=== PATIENT | female | born 1980 | race Caucasian/White ===

== ENCOUNTER 2019-02-02 20:11 | Inpatient (IN) | payer OTHER ==
[~2019-02-02] VITALS: Ht 162.6 cm; Wt 61.2 kg
[2019-02-02 20:20] VITALS: BP 167/109
--- NOTE | 2019-02-02 20:55 | NUR ---
Dr. Paz examining patient.
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
[2019-02-02] MEDS ORDERED: LORazepam 2 MG/ML VIAL IVP ONE (21:05)
[2019-02-02] MEDS ORDERED: ONDANSETRON 4 MG/2 ML VIAL IVP ONE (21:05)
[2019-02-02] MEDS ORDERED: NACL 0.9% 1,000 ML IV ONE (21:05)
[2019-02-02 21:18] LABS: APPEARANCE,URINE HAZY (CLEAR); BILIRUBIN,URINE NEGATIVE (NEGATIVE); BLOOD, URINE TRACE-I (NEGATIVE); COLOR,URINE YELLOW (YELLOW); LEUKOCYTE ESTERASE ,URINE 1+ (NEGATIVE); NITRITE, URINE NEGATIVE (NEGATIVE); PH,URINE 6.5 (5.0-9.0); UGLUCOSE NEGATIVE (NEGATIVE)
[2019-02-02 21:19] LABS: BASOPHILS % (AUTO) 0.2 % (0.0-2.0); HEMATOCRIT 38.1 % (36-48); LYMPHOCYTES # (AUTO) 0.4 K/uL (2.5-16.5); LYMPHOCYTES % (AUTO) 7.6 % (20.5-51.1); MEAN CORPUSCULAR HEMOGLOBIN 32 pg (27-31); MEAN CORPUSCULAR HGB CONC 34 g/dL (33-37); MEAN CORPUSCULAR VOLUME 95.2 fL (80-94); MONOCYTES # (AUTO) 0.7 K/uL (0.8-1.0); MONOCYTES % (AUTO) 13.1 % (1.7-9.3); NEUTROPHILS # (AUTO) 4.1 K/uL (1.8-7.7); NEUTROPHILS % (AUTO) 79.1 % (42.2-75.2); PLATELET COUNT (AUTO) 97 K/uL (140-450); RED BLOOD CELL COUNT(AUTO) 4.01 MIL/uL (4.20-5.40); RED CELL DISTRIBUTION WIDTH 13.9 % (11.6-13.7); WHITE BLOOD COUNT (AUTO) 5.2 K/uL (4.8-10.8)
[2019-02-02 21:22] LABS: RBC,URINE 0-5 /HPF (0-5); WBC,URINE 16-25 (MOD) /HPF (0-5)
[2019-02-02 21:27] LABS: ANION GAP 14.2 (8-16); CARBON DIOXIDE 24.3 mmol/L (21-32); CREATININE 0.6 mg/dL (0.6-1.3); POTASSIUM 3.5 mmol/L (3.5-5.1)
--- NOTE | 2019-02-02 21:30 | NUR ---
EKG PERFORMED AT BEDSIDE
[2019-02-02 21:32] LABS: BARBITURATE, URINE NEG. ng/ml (NEG <=200); BENZODIAZEPINE, URINE POS. ng/mL (NEG <=200); CANNABINOID, URINE NEG. ng/mL (NEG <=50); COCAINE, URINE NEG. ng/mL (NEG <=300); OPIATE, URINE NEG. ng/mL (NEG <=2000); PHENCYCLIDINE SCREEN,URINE NEG. ng/mL (NEG <=25)
[2019-02-02 21:33] LABS: ALBUMIN 3.9 g/dL (3.4-5.0); TOTAL BILIRUBIN 0.6 mg/dL (0.0-1.0)
[2019-02-02] MEDS ORDERED: cefTRIAXone 1,000 MG in LIDOCAINE MPF 1% - 5 mL VIAL 2.1 ML IM ONE (21:45)
--- NOTE | 2019-02-02 22:15 | NUR ---
PT C/O LEFT EAR AND RT ANKLE PAIN. MD AT BEDSIDE. ORDERS TO FOLLOW.
[2019-02-02] MEDS ORDERED: GABA300C PO (22:20)
[2019-02-02] MEDS ORDERED: SERT100T PO (22:20)
[2019-02-02] MEDS ORDERED: SERT25TA PO (22:20)
[2019-02-02] MEDS ORDERED: NALT50TA5 PO (22:20)
[2019-02-02] MEDS ORDERED: KETOROLAC 30 MG/ML VIAL IVP ONE (22:40)
[2019-02-02] MEDS ORDERED: guaiFENesin DM 200/20 MG-10 ML 10 ML UDC PO PRN (22:45)
[2019-02-02] MEDS ORDERED: POTASSIUM CHLORIDE 10 MEQ TABER PO PRN (22:45)
[2019-02-02] MEDS ORDERED: ACETAMINOPHEN 325 MG TAB PO PRN (22:45)
[2019-02-02] MEDS ORDERED: DOCUSATE SODIUM 250 MG GELCAP PO PRN (22:45)
[2019-02-02] MEDS ORDERED: ALUMINUM HYD/MAG/SIMETHICONE 30 ML UDC PO PRN (22:45)
[2019-02-02] MEDS ORDERED: ALBUTEROL 0.083% 2.5 MG/3 ML NEBU INH PRN (22:45)
[2019-02-02] MEDS ORDERED: MAG SULF 2000 MG/WATER PREMIX 50 ML IV PRN (22:45)
[2019-02-02] MEDS ORDERED: POTASSIUM CHLORIDE 40 MEQ, LIDOCAINE 1% 25 MG in NACL 0.9% 250 ML IV PRN (22:45)
[2019-02-02] MEDS ORDERED: ZOLPIDEM 5 MG TAB PO PRN (22:45)
[2019-02-02] MEDS ORDERED: IPRATROPIUM 0.02% 0.5 MG/2.5 ML NEBU INH PRN (22:45)
[2019-02-02] MEDS ORDERED: diphenhydrAMINE 50 MG/ML VIAL IVP PRN (22:45)
[2019-02-02] MEDS ORDERED: ONDANSETRON 4 MG/2 ML VIAL IVP PRN (22:45)
[2019-02-02] MEDS ORDERED: MAGNESIUM OXIDE 400 MG TAB PO PRN (22:45)
--- NOTE | 2019-02-02 23:00 | NUR ---
MD INFORMED PT OF PLAN TO ADMIT. NO NEW QUESTIONS OR CONCERNS AT THIS TIME.
--- NOTE | 2019-02-02 23:30 | NUR ---
Patient will be admitted to care of DR SCOTT. Admited to TELE. Will go to room 106-B. Belongings list completed. Report to JARVIS ISIDRO.
--- NOTE | 2019-02-02 23:30 | NUR ---
PT ARRIVED AT UNIT VIA GURNEY, PT AMBULATED TO BED, TOLERATED WELL, RECEIVED BEDSIDE REPORT FROM ER NURSE MOSES RN, PT STABLE, IV TO L AC 20G PATENT, INTACT, SL, PT ON ROOM AIR, NO SOB, ORIENT PT TO ROOM, CALL LIGHT, BED, MRSA SWAB TAKEN, V/S TAKEN, WNL, INITIAL ASSESSMENT DONE, ALL SAFETY PRECAUTION MET, CALL LIGHT WITHIN REACH, WILL CONTINUE TO MONITOR.
[2019-02-02 23:40] VITALS: BP 138/90
--- NOTE | 2019-02-02 23:55 | NUR ---
DR. SCOTT AT BEDSIDE EVALUATING PT, STATED TO GIVE PT ATIVAN AND LIBRIUM NOW. WILL CONTINUE WITH ORDERS.
[2019-02-03] MEDS: LORazepam 2 MG/ML VIAL IVP PRN ×4 (00:07→20:36)
--- NOTE | 2019-02-03 00:15 | NUR ---
MEDICATION PER DR ORDER ADMINISTERED, PT TOLERATED WELL, NO DISTRESS NOTED, CALL LIGHT WITHIN REACH, WILL CONTINUE TO MONITOR.
--- NOTE | 2019-02-03 02:18 | NUR ---
CHECKED ON PT, PT SLEEPING, NO DISTRESS NOTED, CALL LIGHT WITHIN REACH, WILL CONTINUE TO MONITOR.
[2019-02-03 04:00] VITALS: BP 128/88
--- NOTE | 2019-02-03 04:10 | NUR ---
CHECKED ON PT, PT SLEEPING, NO DISTRESS NOTED, V/S TAKEN WNL, CALL LIGHT WITHIN REACH, WILL CONTINUE TO MONITOR.
--- NOTE | 2019-02-03 07:20 | NUR ---
ENDORSED PT TO DAY SHIFT NURSE ALYSSA CONLEY, PT STABLE, NO DISTRESS NOTED, CALL LIGHT WITHIN REACH.
--- NOTE | 2019-02-03 07:21 | NUR ---
RECEIVED REPORT FROM RE EXAMINER NURSE SANNA. PT IN STABLE CONDITION. RESPIRATIONS EVEN AND UNLABORED. ROOM AIR. IV INTACT AND PATENT. SAFETY MEASURES IN PLACE. BED IN LOW POSITION. BED ALARM ON. CALL LIGHT AT BEDSIDE. WILL CONTINUE TO MONITOR.
[2019-02-03 08:00] VITALS: BP 130/97
--- NOTE | 2019-02-03 08:45 | NUR ---
JONATHAN [facility] [place] [address] [id number] PRN [id number].
--- NOTE | 2019-02-03 09:16 | NUR ---
PATIENT HAS BEEN SCREENED AND CATEGORIZED LOW NUTRITION RISK. PATIENT WILL BE SEEN WITHIN 7 DAYS OF ADMISSION. 02/09/[address]
[2019-02-03] MEDS: THIAMINE 100 MG TAB PO SCH (09:19)
[2019-02-03] MEDS: FOLIC ACID 1 MG TAB PO SCH (09:20)
[2019-02-03] MEDS: MULTIVITAMIN 1 TAB PO SCH (09:20)
--- NOTE | 2019-02-03 09:20 | NUR ---
GAVE ORDERED DUE MEDICATIONS. PT TOLERATED WELL. WILL CONTINUE TO MONITOR.
[2019-02-03] MEDS: HYDROcodone/APAP 5/325 MG 1 TAB TAB PO PRN ×2 (09:21→17:31)
[2019-02-03 12:00] VITALS: BP 163/98
--- NOTE | 2019-02-03 12:19 | NUR ---
Patient was provided an appointment with PCP, Dr. Adriana Goddard on 02/09/2019 at 1:30PM. Patient will be seen at [address] [place] [address]. Phone number: [phone]. SW/CM will follow up as needed.
[2019-02-03] MEDS: cloNIDine 0.1 MG TAB PO PRN (12:34)
--- NOTE | 2019-02-03 12:35 | NUR ---
GAVE CLONIDINE B/P 163/98 WILL CONTINUE TO MONITOR.
[2019-02-03] MEDS ORDERED: LIB5 PO (13:30)
[2019-02-03] MEDS ORDERED: LORA-476 PO (13:32)
[2019-02-03] MEDS ORDERED: VITA1TAB44 PO (13:33)
[2019-02-03] MEDS ORDERED: VITB1I PO (13:34)
[2019-02-03] MEDS ORDERED: MULT-153 PO (13:35)
[2019-02-03] MEDS ORDERED: THIA500T9 PO (13:42)
--- NOTE | 2019-02-03 14:03 | NUR ---
RECHECKED B/P 153/103. PT IN STABLE CONDITION.
--- NOTE | 2019-02-03 15:42 | NUR ---
PT REFUSED TO BE DISCHARGED STATING "I AM NOT STABLE ENOUGH". DR. SCOTT IS AWARE AND WILL SEE THE PT. PT IN STABLE CONDITION. FAMILY MEMBER AND FRIEND AT BEDSIDE. BED IN LOW POSITION. CALL LIGHT AT BEDSIDE. WILL CONTINUE TO MONITOR.
[2019-02-03 16:00] VITALS: BP 145/101
--- NOTE | 2019-02-03 17:00 | NUR ---
PT SLEEPING AT THIS TIME. RESPIRATIONS EVEN AND UNLABORED. CALL LIGHT AT BEDSIDE. BED ALARM ON. BED IN LOW POSITION. WILL CONTINUE TO MONITOR.
--- NOTE | 2019-02-03 19:27 | NUR ---
GAVE REPORT TO AUDIO VISUAL EQUIPMENT RENTAL CLERK NURSE JOSH FOR CONTINUITY OF CARE. PT IN STABLE CONDITION.
--- NOTE | 2019-02-03 19:28 | NUR ---
RECEIVED BEDSIDE REPORT FROM DAY SHIFT NURSEALYSSA. PT IN STABLE CONDITION. RESPIRATIONS EVEN AND UNLABORED. ROOM AIR. IV SITE ON LAC, 20G, INTACT AND PATENT. POC REVIEWED AND DISCUSSED WITH PT. PT VERBALIZED UNDERSTANDING. BOARD UPDATED. SAFETY MEASURES IN PLACE. BED IN LOW POSITION. CALL LIGHT AT BEDSIDE. WILL CONTINUE TO MONITOR.
[2019-02-03 20:00] VITALS: BP 135/91
--- NOTE | 2019-02-03 20:36 | NUR ---
PT C/O ANXIETY, GIVEN ATIVAN ORDERED. PT TOLERATED WELL. WILL CONTINUE TO MONITOR.
--- NOTE | 2019-02-03 22:36 | NUR ---
PT SLEEPING IN BED. NO ACUTE DISTRESS NOTED. WILL CONTINUE TO MONITOR.
[2019-02-04] VITALS: BP 142/104
--- NOTE | 2019-02-04 00:40 | NUR ---
PT SLEEPING IN BED. NO DISTRESS NOTED. WILL CONTINUE TO MONITOR.
--- NOTE | 2019-02-04 02:05 | NUR ---
PT SLEEPING IN BED. BREATHING EVEN AND UNLABORED. BED IN LOW POSITION. CALL LIGHT WITHIN REACH.
[2019-02-04 04:00] VITALS: BP 132/82
--- NOTE | 2019-02-04 04:05 | NUR ---
VS CHECKED, WITHIN PT'S BASELINE. WILL CONTINUE TO MONITOR.
--- NOTE | 2019-02-04 05:50 | NUR ---
PT SLEEPING IN BED. NO ACUTE DISTRESS NOTED.
--- NOTE | 2019-02-04 07:10 | NUR ---
ENDORSED PT TO DAY SHIFT NURSE. PT IN STABLE CONDITION.
--- NOTE | 2019-02-04 07:11 | NUR ---
RECEIVED BED SIDE REPORT FROM RN PROCEDURES RN JOSH. PT AWAKE AND WALKED TO BATHROOM BY HERSELF, STEADY GAIT. L AC 20G SALINE LOCK. ON TELE MONITOR, APPEARS IN NO PAIN AND ON RA IN NO RESPIRATORY DISTRESS. WILL CONTINUE TO MONITOR
[2019-02-04 07:42] VITALS: BP 155/90
[2019-02-04] MEDS: FOLIC ACID 1 MG TAB PO SCH (09:31)
[2019-02-04] MEDS: THIAMINE 100 MG TAB PO SCH (09:32)
[2019-02-04] MEDS: MULTIVITAMIN 1 TAB PO SCH (09:32)
--- NOTE | 2019-02-04 09:45 | NUR ---
GAVE AM MEDS. EDUCATED PT ON MEDS SHE IS TAKING AND S/E OF EACH MED. PT STATES SHE DOES NOT HAVE TREMORS OR SHAKINESS. PT STATES THAT SHE IS READY TO GO HOME. TO COME TO SEE PT D/T PT'S REFUSAL TO BE DC YESTERDAY. DC PAPERS READY. VS STABLE. PT COMPLAINS OF NO MORE PAIN. EARLIER SHE STATED SHE HAD 8/10 ACHING PAIN. NO PAIN MEDS GIVEN
--- NOTE | 2019-02-04 10:18 | NUR ---
PT SIGNED DC PAPER WORK. RX MEDS GIVEN AND EDUCATED PT ON THOSE MEDS AND S/E. VERBALIZED UNDERSTANDING. PT REQUESTED TO HAVE BP CHECKED. IT WAS 148/94. PT REQUESTED BP MEDS. WILL GIVE PER MD ORDER
[2019-02-04] MEDS: cloNIDine 0.1 MG TAB PO PRN (10:20)
[2019-02-04 12:00] VITALS: BP 149/105
[2019-02-04 15:53] VITALS: BP 125/94
--- NOTE | 2019-02-04 17:32 | NUR ---
PT REQUESTED MEDICAL CLEARANCE FROM [facility]. FILLED OUT FORM WITH RADHA CASTLE RN. PT IN STABLE CONDITION, VS STABLE. PT HAS NO TREMORS OR SHAKINESS. DISCHARGE PHOTOGRAPHS TAKEN. PERSONAL BELONGINGS TAKEN WITH PT. PT DID NOT WANT TO BE WHEELED OUT. PT HAS A STEADY GAIT. IV TAKEN OUT, NO BLEEDING NOTED, PRESSURE APPLIED. EDUCATED PT ON THE IMPORTANCE OF ABSTAINING FROM ALCOHOL AND RX MEDS AND S/E. PT VERBALIZED UNDERSTANDING
--- NOTE | 2019-02-05 08:12 | NUR ---
WOUND CARE CONSULT NOT DONE, PT. DISCHARGED.
== END 2019-02-04 17:30 | disposition home or self-care (01) | DRG 775 ==
LOC: MED 20:11 → MTU 22:12
PROVIDERS: ADMIT Internal Medicine Pulmonary Disease; ATTEND Internal Medicine Pulmonary Disease
DX: F10.239 Alcohol dependence with withdrawal, unspecified (principal); D69.6 Thrombocytopenia, unspecified; R56.9 Unspecified convulsions; N39.0 Urinary tract infection, site not specified; S93.401A Sprain of unspecified ligament of right ankle, initial encounter; S50.812A Abrasion of left forearm, initial encounter; S50.811A Abrasion of right forearm, initial encounter; F32.9 Major depressive disorder, single episode, unspecified; Z79.899 Other long term (current) drug therapy; V89.2XXA Person injured in unspecified motor-vehicle accident, traffic, initial encounter; Y93.89 Activity, other specified; Y92.89 Other specified places as the place of occurrence of the external cause; Y99.8 Other external cause status
CPT/HCPCS: 36415; 73610; 80053; 80305; 81001; 85025; 87081; 87086; 93005; 96361; 96372; 96374; 96375; 99285; G0482; J0696; J1885; J2001; J2060; J2405; J7030; Q0092